=== PATIENT | male | born 1960 | race American Indian/Alaskan Native ===

== ENCOUNTER 2018-06-30 12:31 | Day surgery (SDC) | payer OTHER ==
[2018-06-23 13:35] LABS: Basophils % (Auto) 0.5 % (0.0-1.8); Eosinophils % (Auto) 0.3 % (0.0-4.3); Hematocrit 47.4 % (35.5-45.6); Hemoglobin 15.6 gm/dl (11.8-15.2); Lymphocytes # (Auto) 1.2 K/mm3 (1.2-5.4); Lymphocytes % (Auto) 20.4 % (13.4-35.0); Mean Corpuscular HGB Conc 33 % (32-34); Mean Corpuscular Volume 80 fl (84-94); Monocytes # (Auto) 0.5 K/mm3 (0.0-0.8); Monocytes % (Auto) 9.4 % (0.0-7.3); Platelet Count 190 K/mm3 (140-440); Red Blood Count 5.91 M/mm3 (3.65-5.03); Red Cell Distribution Width 14.5 % (13.2-15.2)
--- NOTE | 2018-06-23 13:52 | Anesthesia Consultation ---
Anesthesia Consult and Med Hx Date of service: 06/30/18 - Airway Anesthetic Teeth Evaluation: Good ROM Head & Neck: Adequate Mental/Hyoid Distance: Adequate Mallampati Class: Class II Intubation Access Assessment: Good - Pulmonary Exam CTA: Yes - Cardiac Exam Cardiac Exam: No Murmur - Pre-Operative Health Status ASA Pre-Surgery Classification: ASA3 Proposed Anesthetic Plan: General - Pulmonary Hx Smoking: Yes (STOPPED X 5 YRS) Hx Sleep Apnea: No (JUSTIN PRE SCREEN HIGH RISK) - Cardiovascular System Hx Hypertension: Yes (X 5 YRS) Hx Valvular Heart Disease: Yes (HX "LEAKING VALVES") Hx Heart Murmur: Yes
[2018-06-23 13:56] LABS: INR 0.93 (0.87-1.13)
[2018-06-23 13:57] LABS: Alanine Aminotransferase 17 units/L (7-56); Albumin 3.7 g/dL (3.9-5); BUN/Creatinine Ratio 12; Blood Urea Nitrogen 12 mg/dL (9-20); Calcium 9.1 mg/dL (8.4-10.2); Hemolysis Index 8; Partial Thromboplastin Time 26.4 Sec. (24.2-36.6)
[~2018-06-30 12:31] MED LIST: DECADRON ONE; DIPRIVAN 10 MG/ML IV ONE; FLAGYL 500 MG/100 ML 500 MG/100 ML BAG IV NR; SUBLIMAZE ONE; XYLOCAINE MPF 2% ONE; ZOFRAN ONE
[2018-06-30] MEDS ORDERED: NARCAN 0.4 MG/1 ML IV PRN (12:34)
[2018-06-30] MEDS ORDERED: DILAUDID IV PRN (12:34)
[2018-06-30] MEDS ORDERED: SUBLIMAZE IV PRN (12:34)
[2018-06-30] MEDS ORDERED: ZOFRAN IV PRN (12:34)
--- NOTE | 2018-06-30 12:34 | Anesthesia Day of Surgery ---
Anesthesia Day of Surgery - Day of Surgery Patient Examined: Yes Patient H&P Reviewed: Yes Patient is NPO: Yes Beta Blockers: No Cardiac Clearance: No Pulmonary Clearance: No
[2018-06-30] MEDS ORDERED: LEVAQUIN 500MG/100ML 500 MG/100 ML BAG IV SCH (13:00)
[2018-06-30] MEDS ORDERED: NEOSPORIN GU IR ONE ×2 (13:39→14:11)
[2018-06-30] MEDS ORDERED: PEPCID PO NR (14:00)
[2018-06-30] MEDS ORDERED: VERSED IV NR (14:00)
[2018-06-30] MEDS ORDERED: LACTATED RINGERS 1,000 ML IV SCH (14:00)
[2018-06-30] MEDS ORDERED: SUBLIMAZE ONE (14:04)
[2018-06-30] MEDS ORDERED: NACL 0.9% IR ONE ×2 (14:11)
--- NOTE | 2018-06-30 14:57 | Short Stay Summary ---
Short Stay Documentation Date of service: 06/30/18 - History H&P: obtained from office - Allergies and Medications Current Medications: Allergies Penicillins Allergy (Verified 06/21/18 13:17) Unknown WAS TOLD CHILD THAT HE WAS ALLERGIC. Home Medications Medication Instructions Recorded Confirmed Last Taken Type Carvedilol [Coreg] 6.25 mg PO BID 06/21/18 06/30/18 06/29/18 22:00 History Lisinopril [Zestril] 20 mg PO DAILY 06/21/18 06/30/18 06/29/18 22:00 History Selegiline [Emsam] 1 each TD DAILY 06/21/18 06/30/18 06/29/18 22:00 History Zolpidem Tartrate [Ambien] 5 mg PO QHS 06/21/18 06/30/18 06/29/18 22:00 History Active Medications Famotidine (Pepcid) 20 mg PO PREOP NR Stop: 06/30/18 23:59 Last Admin: 06/30/18 13:08 Dose: 20 mg Documented by: Fentanyl (Sublimaze) 50 mcg IV Q5MIN PRN PRN Reason: Pain , Severe (7-10) Stop: 06/30/18 23:35 Hydromorphone HCl (Dilaudid) 0.5 mg IV Q10MIN PRN PRN Reason: Pain , Severe (7-10) Stop: 06/30/18 23:35 Lactated Ringer's (Lactated Ringers) 1,000 mls @ 100 mls/hr IV DIRECT KEEGAN Last Admin: 06/30/18 13:05 Dose: 100 mls/hr Documented by: Levofloxacin/Dextrose (Levaquin 500mg/100ml) 500 mg in 100 mls @ 100 mls/hr IV PREOP KEEGAN; Protocol Midazolam HCl (Versed) 2 mg IV PREOP NR Stop: 06/30/18 23:59 Last Admin: 06/30/18 13:08 Dose: 2 mg Documented by: Naloxone HCl (Narcan 0.4 Mg/1 Ml) 0.1 mg IV Q2MIN PRN PRN Reason: Res Rate </= 8 or 02 SAT < 92% Ondansetron HCl (Zofran) 4 mg IV ONCE PRN PRN Reason: Nausea And Vomiting - Brief post op/procedure progress note Date of procedure: 06/30/18 Pre-op diagnosis: HARRY Procedure: CYSTO, MALE SLING (ADVANCE xp---- [id number]) Anesthesia: GETA Surgeon: YOVANNY MCCARTHY Estimated blood loss: minimal Pathology: none Condition: stable - Hospital course Hospital course: bactrim & norco on chart - Disposition Condition at discharge: Stable Disposition: DC-01 TO HOME OR SELFCARE Short Stay Discharge Plan Follow up with: CHAPIN KWOK MD [Primary Care Provider] - 7 Days
--- NOTE | 2018-06-30 15:43 | Operative Report ---
PREOPERATIVE DIAGNOSIS: Stress urinary incontinence. POSTOPERATIVE DIAGNOSIS: Stress urinary incontinence. PROCEDURE: Cystoscopy, male sling (Advance XP code [id number]). SURGEON: Manny Escalera MD ANESTHESIA: General. ESTIMATED BLOOD LOSS: Minimal. FLUIDS: Crystalloid. COMPLICATIONS: No complications. INDICATIONS: This patient is a 58-year-old gentleman with history of prostate cancer, status post robotic prostatectomy 04/2015 at another institution. The patient had [place] 8 adenocarcinoma of the prostate with local positive margins. He subsequently underwent adjuvant radiation therapy as well as hormone therapy completed 08/2015. He now presents for persistent stress urinary incontinence. I saw him for the first time in 04/2017. Trial of Myrbetriq was unsuccessful and we discussed options. He agreed to proceed with male sling. He understands previous surgery and radiation therapy make it difficult to manage this problem. He is also a candidate for artificial urinary sphincter should this not work satisfactorily. DESCRIPTION OF PROCEDURE: The patient was taken to the operative suite, placed in a supine position, after adequate general anesthesia, placed in a dorsal lithotomy position, prepped and draped in a sterile fashion. Flexible cystoscopy was performed. Bladder was normal. No tumors or stones. No strictures were noted. A 16-[place] catheter was then placed. A transperineal incision was made with the Bovie. Sharp dissection was taken down to the corpus spongiosum which was dissected out. The central tendon was identified. 2-0 Vicryl was placed in that area. It was then transected to allow mobility of the urethra. Next, using the advance stylet under the spinal needle was used to palpate the junction of the pubic rami, the inferior aspect of the pubic rami. A small incision was made in this area, 2 pops could be appreciated and the was brought into the wound adjacent to the urethra. The mesh graft was attached to the stylet and it pulled out to the skin. Similar procedure was performed on the left side as well. Copious irrigation was performed. Adequate hemostasis achieved. The cystoscopy was then performed and could see some coaptation in the area of the sling (graft). The graft was then tacked to the urethra using 3-0 Vicryl in interrupted fashion, four points. Again, mobilization and cystoscopy was performed and could see some mobilization of the urethra. The plastic sheath was then deployed fixating the graft, saw some coaptation. The bladder was filled with less leakage at this point. In the perineal area, the muscular layer was then closed with 2-0 Vicryl in a running fashion. The skin was closed with 2-0 Vicryl in an interrupted fashion and the stylet. Puncture wounds were closed with 2-0 Vicryl in interrupted fashion. Dermabond was placed, dressing and mesh pants. The patient was extubated and taken to the recovery room in stable condition. He will go home on Bactrim, [place], and a Crook catheter. JOB# [id number] MALISSA/JOYCE
[2018-06-30 15:53] VITALS: BP 129/58
== END 2018-06-30 17:30 | disposition home or self-care (01) ==
LOC: OR 12:31
PROVIDERS: ATTEND Urology
DX: N39.498 Other specified urinary incontinence (principal); E78.00 Pure hypercholesterolemia, unspecified; I10 Essential (primary) hypertension; F32.9 Major depressive disorder, single episode, unspecified; Z85.46 Personal history of malignant neoplasm of prostate; Z79.899 Other long term (current) drug therapy; Z88.0 Allergy status to penicillin; Z87.891 Personal history of nicotine dependence; Z98.890 Other specified postprocedural states; Z79.01 Long term (current) use of anticoagulants
CPT/HCPCS: 36415; 53440; 80053; 85025; 85610; 85730; A4217; C1771; J1100; J1170; J1956; J2250; J2405; J2704; J3010; J7120